=== PATIENT | male | born 1985 | race American Indian/Alaskan Native ===

== ENCOUNTER 2018-12-17 21:51 | Emergency (ER) | payer SELFPAY ==
--- NOTE | 2018-12-17 22:35 | Event Note ---
ED Screening Note Date of service: 12/17/18 Time: 22:32 ED Screening Note: This is a 33 y.o. M. that presents to the ER with left shoulder pain. Patient states he woke up unable to move his left shoulder for 3 days. This initial assessment/diagnostic orders/clinical plan/treatment(s) is/are s ubject to change based on patients health status, clinical progression and re- assessment by fellow clinical providers in the ED. Further treatment and workup at subsequent clinical providers discretion. Patient/guardian urged not to elope from the ED as their condition may be serious if not clinically assessed and managed. Initial orders include: XR left shoulder
[2018-12-18] MEDS ORDERED: TORADOL IM ONE (00:44)
--- NOTE | 2018-12-18 02:14 | XRay Report ---
LEFT SHOULDER 3 VIEWS 20-49 INDICATION: pain, decreased ROM COMPARISON: None available. FINDINGS: No fractures or dislocations are seen. Calcifications lateral and posterior to the humeral head probably are tenderness lobe possibly could be a synovial osteochondromata. No significant arthr itic changes are seen. Signer Name: Ciro Dubois MD Signed: 12/18/2018 2:09 AM Workstation Name: [id number]
--- NOTE | 2018-12-18 02:58 | Emergency Department Report ---
ED Upper Extremity Inj HPI - General Chief Complaint: Shoulder Injury Stated Complaint: SHOULDER PAIN Time Seen by Provider: 12/17/18 22:30 Source: patient Mode of arrival: Ambulatory Limitations: No Limitations - History of Present Illness Initial Comments: This is a well-developed alert female who presents with left anterior and posterior shoulder pain patient states woke up with pain no fall injury or trauma pain described as 7/10 exacerbated by movement and palpation there is no deformity there is no numbness no tingling range of motion is restricted by pain MD Complaint: Injury to:: left, shoulder Onset/Timin -: days(s) Other Extremity Injury: Shoulder: Left Other Injuries: none Handedness: right Place: school Severity scale (0 -10): 4 Improves With: cold therapy Worsens With: movement of extremity Context: other (awakened with pain ) Associated Symptoms: weakness. denies: denies other symptoms, neck pain, heard/felt popping sensat - Related Data Previous Rx's Medication Instructions Recorded Last Taken Type Acetaminophen/Codeine [Tylenol 1 tab PO Q6H PRN #12 tab 12/18/18 Unknown Rx /Codeine # 3 tab] Cyclobenzaprine [Flexeril] 10 mg PO TID PRN #30 tablet 12/18/18 Unknown Rx Menthol/Camphor [[place] 1 applicatio TP QID PRN #1 tube 12/18/18 Unknown Rx Ointment] Naproxen [Naprosyn] 500 mg PO BID PRN #30 tablet 12/18/18 Unknown Rx Allergies Allergy/AdvReac Type Severity Reaction Status Date / Time shrimp Allergy Unknown Verified 12/17/18 21:56 ED Review of Systems ROS: Stated complaint: SHOULDER PAIN Other details as noted in HPI Constitutional: denies: chills, fever Eyes: denies: eye pain, eye discharge, vision change ENT: denies: ear pain, throat pain Respiratory: denies: cough, shortness of breath, wheezing Cardiovascular: denies: chest pain, palpitations Endocrine: no symptoms reported Gastrointestinal: denies: abdominal pain, nausea, vomiting, diarrhea, constipation, hematemesis Genitourinary: other (deferred ) Musculoskeletal: denies: back pain, joint swelling, arthralgia Skin: denies: rash, lesions Neurological: denies: headache, weakness, paresthesias Psychiatric: denies: anxiety, depression Hematological/Lymphatic: denies: easy bleeding, easy bruising ED Past Medical Hx - Past Medical History Previous Medical History?: No - Surgical History Past Surgical History?: No - Social History Smoking Status: Current Every Day Smoker Substance Use Type: Alcohol - Medications Home Medications: Home Medications Medication Instructions Recorded Confirmed Last Taken Type Acetaminophen/Codeine [Tylenol 1 tab PO Q6H PRN #12 tab 12/18/18 Unknown Rx /Codeine # 3 tab] Cyclobenzaprine [Flexeril] 10 mg PO TID PRN #30 tablet 12/18/18 Unknown Rx Menthol/Camphor [[place] 1 applicatio TP QID PRN #1 tube 12/18/18 Unknown Rx Ointment] Naproxen [Naprosyn] 500 mg PO BID PRN #30 tablet 12/18/18 Unknown Rx ED Physical Exam - General Limitations: No Limitations General appearance: alert, in no apparent distress - Head Head exam: Present: atraumatic, normocephalic, normal inspection - Eye Eye exam: Present: normal appearance, PERRL Pupils: Present: normal accommodation - ENT ENT exam: Present: normal exam, normal orophraynx, TM's normal bilaterally, normal external ear exam - Neck Neck exam: Present: normal inspection, full ROM. Absent: lymphadenopathy, thyromegaly - Respiratory Respiratory exam: Present: normal lung sounds bilaterally, chest wall tenderness. Absent: respiratory distress, wheezes, stridor, prolonged expiratory - Cardiovascular Cardiovascular Exam: Present: regular rate, normal heart sounds - GI/Abdominal GI/Abdominal exam: Present: soft, normal bowel sounds. Absent: distended, tenderness, guarding, rebound, rigid, bruit, hernia - Rectal Rectal exam: Present: deferred - Expanded Upper Extremity Exam Left Shoulder Exam: Present: normal inspection, full ROM, tenderness (ac joint te nderness ), tenderness over AC joint. Absent: swelling, abrasion, laceration, ecchymosis, deformity, crepidus, dislocation Upper Arm exam: Present: normal inspection, full ROM. Absent: tenderness, swelling, abrasion, laceration, ecchymosis, deformity, crepidus, dislocation, erythema Elbow exam: Present: full ROM. Absent: tenderness Forearm Wrist exam: Present: full ROM. Absent: tenderness Hand Wrist exam: Present: normal inspection, full ROM. Absent: tenderness Neuro motor exam: Present: wrist extension intact, thumb opposition intact, thumb IP flexion intact, thumb adduction intact, fingers 2-5 abduction intact Neurosensory exam: Present: 2-point discrimination, radial nerve intact, ulnar nerve intact, median nerve intact Vascular: Present: vascular compromise, normal capillary refill, radial pulse, brachial pulse, ulnar pulse. Absent: pulse deficit radial art, pulse deficit ulnar art, pulse deficit brachial art - Back Exam Back exam: Present: normal inspection, full ROM, muscle spasm. Absent: tenderness, CVA tenderness (R), CVA tenderness (L), paraspinal tenderness, vertebral tenderness, rash noted - Neurological Exam Neurological exam: Present: alert, oriented X3, CN II-XII intact, normal gait, reflexes normal. Absent: motor sensory deficit - Psychiatric Psychiatric exam: Present: normal affect, normal mood - Skin Skin exam: Present: warm, dry, intact, normal color. Absent: rash ED Course Vital Signs 12/17/18 12/18/18 21:59 00:56 Temperature 99.9 F H Pulse Rate 93 H Respiratory 18 16 Rate Blood Pressure 128/46 O2 Sat by Pulse 99 Oximetry ED Medical Decision Making - Radiology Data Radiology results: report reviewed, image reviewed Ordering Physician: ALEX REESE Date of Service: 12/17/18 Procedure(s): XR shoulder 2+V LT Accession Number(s): [id number] cc: ALEX REESE Fluoro Time In Minutes: LEFT SHOULDER 3 VIEWS 20-49 INDICATION: pain, decreased ROM COMPARISON: None available. FINDINGS: No fractures or dislocations are seen. Calcifications lateral and posterior to the humeral head probably are tenderness lobe possibly could be a synovial osteoc hondromata. No significant arthritic changes are seen. Signer Name: Ciro Dubois MD Signed: 12/18/2018 2:09 AM Workstation Name: [id number] Transcribed By: GJ Dictated By: Ciro Dubois MD Electronically Authenticated By: Ciro Dubois MD Signed Date/Time: 12/18/18208 DD/ 7 TD/TT: - Medical Decision Making Shoulder x-ray no dislocation or subluxation , and degenerative changes plan NSAIDs muscle relaxants analgesic balm shoulder exercises follow up with ortho in 2-3 days patient verbalized agreement and understanding of same Critical care attestation.: If time is entered above; I have spent that time in minutes in the direct care of this critically ill patient, excluding procedure time. ED Disposition Clinical Impression: Sprain of shoulder, right Qualifiers: Encounter type: initial encounter Shoulder sprain type: unspecified sprain Qualified Code(s): S43.401A - Unspecified sprain of right shoulder joint, initial encounter Disposition: TO HOME OR SELFCARE Is pt being admited?: No Does the pt Need Aspirin: No Condition: Stable Instructions: Shoulder Sprain (ED) Prescriptions: Cyclobenzaprine [Flexeril] 10 mg PO TID PRN #30 tablet PRN Reason: Muscle Spasm Naproxen [Naprosyn] 500 mg PO BID PRN #30 tablet PRN Reason: pain Menthol/Camphor [[place] Ointment] 1 applicatio TP QID PRN #1 tube PRN Reason: pain Acetaminophen/Codeine [Tylenol /Codeine # 3 tab] 1 tab PO Q6H PRN #12 tab PRN Reason: Pain , Severe (7-10) Referrals: PRIMARY CAREMD [Primary Care Provider] - 3-5 Days CLAYTON MCFARLAND MD [Staff Physician] - 3-5 Days Forms: Work/School Release Form(ED) Time of Disposition: 03:10
[2018-12-18 06:30] VITALS: BP 122/66
== END 2018-12-18 03:22 | disposition home or self-care (01) ==
LOC: ED 21:51
DX: S43.401A Unspecified sprain of right shoulder joint, initial encounter (principal); F17.200 Nicotine dependence, unspecified, uncomplicated; Z79.899 Other long term (current) drug therapy; Z91.013 Allergy to seafood; X58.XXXA Exposure to other specified factors, initial encounter; Y93.89 Activity, other specified; Y92.89 Other specified places as the place of occurrence of the external cause; Y99.8 Other external cause status
CPT/HCPCS: 73030; 96372; 99283; J1885